=== PATIENT | male | born 1925 | race Caucasian/White ===

== ENCOUNTER 2016-09-11 15:55 | Emergency (ER) | payer BC ==
[~2016-09-11] VITALS: Ht 175.3 cm; Wt 77.5 kg
[~2016-09-11 15:55] MED LIST: ALT/10 PO; ASPI81TA21 PO; CALCTAB7 PO; DONE10TA12 PO; FISHOIL PO; GLUC250C5 PO; IBUP-1277 PO; LUTEIN 20MG; MAGNESIUM 500MG; MELATONIN 3MG; MEMA10TA PO; METO100T44 PO; MULTTAB58 PO; PROSTATA
[2016-09-11 16:00] VITALS: TEMP 36.8; Ht 175.3 cm; Wt 77.5 kg
--- NOTE | 2016-09-11 16:34 | EMERGENCY ROOM VISIT NOTE ---
History First contact with patient: 15:57 Chief Complaint: FALL Stated Complaint: FALL/ FACIAL LAC & ABRASIONS History of Present Illness The patient is a 89 year old male who presents to the Emergency Room with complaints of fall with abrasions to his nose, chin, and hands. The fall occurred approximately 30 minutes ago while on his daily walk. The patient has a history of Alzheimers Dementia, Hypertension, and a Pacemaker. He does not recall the events that occurred prior to the fall. He states that he did not lose consciousness after the fall. He states that he does remember falling but does not recall what caused him to fall. He also states he remember getting up from his fall. He denies any recent weakness, fatigue, shortness of breath, headache, vision changes, or chest pain, arm pain, hip pain, leg pain. Review of Systems See HPI for pertinent positives and negatives. A total of ten systems were reviewed and were otherwise negative. Past Medical/Surgical History Alzheimers Dementia, Hypertension, Pacemaker placement Social History Smoking Status: Former Smoker Alcohol Use: none Drug Use: none Marital Status: Housing Status: lives with family (son) Current/Historical Medications Scheduled Aspirin Enteric Coated (Ecotrin Or Generic), 81 MG PO DAILY Calcium Carbonate-Vitamin D W/ (Caltrate 600 Plus), 1 TAB PO DAILY Donepezil Hydrochloride (Aricept), 10 MG PO DAILY Fish Oil ([place]-3), 1 CAP PO BID Glucosamine-Chondroitin (Glucosamine/Chondroitin 250/200MG), 1 CAP PO BID Ibuprofen (Advil), 200 MG PO DAILY Memantine Hcl (Namenda), 10 MG PO BID Metoprolol Succ (Toprol Xl) (Toprol-Xl ), 100 MG PO DAILY Multiple Vitamin (Multivitamin), 1 TAB PO DAILY Ramipril (Altace), 10 MG PO BID [Lutein 20MG], 1 TAB DAILY [Magnesium 500MG], 1 DAILY [Melatonin 3MG], 1 HS [Prostata], 1 TAB BID Allergies Coded Allergies: Iodinated Contrast Media (Verified Allergy, Unknown, ., 09/11/16) Levofloxacin (Verified Allergy, Unknown, Unk, 09/11/16) Sulfa Drugs (Verified Allergy, Unknown, 09/11/16) Sulfamethoxazole (Verified Allergy, Unknown, 09/11/16) Physical Exam Vital Signs Date Time Temp Pulse Resp B/P Pulse Ox O2 Delivery O2 Flow Rate FiO2 5/8/17 16:16 63 09/11/16 16:00 36.8 85 18 183/105 97 Room Air Pain Rating (0-10): 0 Physical Exam GENERAL: Awake, alert, well-appearing, in no distress HENT: Normocephalic, Multiple Small Abrasions over the septal and left nostril aspect over the nose. Single abrasion over the chin as well, 0.5 cm in size. Ecchymosis below left eye. EYES: Normal conjunctiva. Sclera non-icteric. PERRL, EOMI. NECK: Neck brace present, denies any tenderness with flexion, extension, lateral rotation. No tenderness with palpation of cervical spine. RESPIRATORY: Clear to auscultation. CARDIAC: Regular rate, normal rhythm. Extremities warm and well perfused. Pulses equal. ABDOMEN: Soft, non-distended. No tenderness to palpation. No rebound or guarding. No masses. RECTAL: Deferred. MUSCULOSKELETAL: Chest, Hip, Arm, and Leg examination reveals no tenderness. The back is symmetrical on inspection without obvious abnormality. No joint edema. NEURO: Patient is oriented to person and place as well as time of day. He often does not responds appropriately to questions and repeats questions multiple times but his son at bedside states that this is his baseline mental status. Strength 5/5 in UE and LE. SKIN: No rash or jaundice noted. Abrasions over the inferior palms bilaterally, as well as both knees. Medical Decision & Procedures Medical Decision Mechanical Fall - Head CT - Cervical CT - Maxillary CT Impression Primary Impression: Fall Departure Information Referrals Domenico Corrales M.D. (PCP) Patient Instructions My [facility] Problem Qualifiers Primary Impression: Fall Encounter type: initial encounter Qualified Codes: W19.XXXA - Unspecified fall, initial encounter
[2016-09-11] MEDS ORDERED: FLM4 PO (17:06)
[2016-09-11] MEDS ORDERED: AMLO2.5T PO (17:06)
--- NOTE | 2016-09-11 17:07 | DIAGNOSTIC IMAGING REPORT ---
HEAD CT NONCONTRAST CT DOSE: 1127.09 mGy.cm HISTORY: Trauma Head Trauma TECHNIQUE: Multiaxial CT images of the head were performed without the use of intravenous contrast. Comparison: None. Findings: The paranasal sinuses and mastoid air cells are clear. The calvarium and skull base are intact. The ventricles and sulci are within normal limits. There is no mass, hematoma, midline shift, or acute infarct. Impression: No acute intracranial abnormality. Age-related atrophy and chronic small vessel change Electronically signed by: Robert Childs M.D. 09/11/2016 5:05 PM Dictated Date/Time: 09/11/2016 5:05 PM
--- NOTE | 2016-09-11 17:11 | DIAGNOSTIC IMAGING REPORT ---
CERVICAL SPINE CT CT DOSE: HISTORY: Trauma Head Trauma TECHNIQUE: Multiaxial CT images of the cervical spine were performed and reformatted in the sagittal and coronal plane without the use of contrast. COMPARISON: None. FINDINGS: No fractures. No subluxation. Prevertebral soft tissues and the C1-C2 interval are intact. No pneumothorax. Degenerative change throughout the entire cervical region. IMPRESSION: Degenerative change. No acute bony abnormality. Electronically signed by: Robert Childs M.D. 09/11/2016 5:09 PM Dictated Date/Time: 09/11/2016 5:07 PM
--- NOTE | 2016-09-11 17:13 | DIAGNOSTIC IMAGING REPORT ---
MAXILLOFACIAL CT CT DOSE: HISTORY: Trauma head trauma TECHNIQUE: Multiaxial CT images of the maxillofacial region were performed and reformatted in the coronal plane without the use of contrast. COMPARISON: None. FINDINGS: The visualized cervical spine, skull base, pterygoid plates, nasal bones, lamina papyracea, orbital floors, mandible, and zygomatic arches are intact. No fractures. The orbits are unremarkable. IMPRESSION: No fractures within the maxillofacial region. Electronically signed by: Robert Childs M.D. 09/11/2016 5:12 PM Dictated Date/Time: 09/11/2016 5:10 PM
[2016-09-11 18:34] VITALS: BP 176/98; PULSE 72; O2SAT 97
--- NOTE | 2016-09-11 21:57 | EMERGENCY ROOM VISIT NOTE ---
History Report prepared by Jaron: Renu Madison Under the Supervision of: Dr. Caleb Wild D.O. First contact with patient: 15:56 Chief Complaint: FALL Stated Complaint: FALL/ FACIAL LAC & ABRASIONS History of Present Illness The patient is an 89 year old male who presents to the Emergency Room with complaints of a fall [employer]. He was walking around the neighborhood when he tripped and fell forward. He remembers falling. He denies losing consciousness prior to or after the fall. He reports cuts to his face and hands. He denies any shoulder pain, chest pain, SOB, abdominal pain, hip pain, leg pain, headache , neck pain, or vision changes. He was able to get up and walk around afterwards. He has a pacemaker in place. Patient is at his baseline per son. The fall was witnessed by a neighbor who did call EMS. There is no reported loss of consciousness by the neighbor either per report. Source of History: patient Onset: [employer] Position: other (global) Quality: other (fall) Timing: other (episodic) Associated Symptoms: No SOB, No abdominal pain, No chest pain, No headache, No neck pain Note: Pt reports cuts to face and hands. Pt denies shoulder pain, hip pain, leg pain, vision changes. Review of Systems See HPI for pertinent positives & negatives. A total of 10 systems reviewed and were otherwise negative. Past Medical & Surgical Surgical Problems: (1) S/P placement of cardiac pacemaker Family History Non contributory secondary to age. Social History Smoking Status: Former Smoker Marital Status: Current/Historical Medications Scheduled Amlodipine (Norvasc), 2.5 MG PO DAILY Aspirin Enteric Coated (Ecotrin Or Generic), 81 MG PO DAILY Calcium Carbonate-Vitamin D W/ (Caltrate 600 Plus), 1 TAB PO DAILY Donepezil Hydrochloride (Aricept), 10 MG PO DAILY Fish Oil ([place]-3), 1 CAP PO BID Glucosamine-Chondroitin (Glucosamine/Chondroitin 250/200MG), 1 CAP PO QAM Memantine Hcl (Namenda), 10 MG PO BID Metoprolol Succ (Toprol Xl) (Toprol-Xl ), 100 MG PO DAILY Multiple Vitamin (Multivitamin), 1 TAB PO DAILY Ramipril (Altace), 10 MG PO QPM Tamsulosin HCl (Tamsulosin HCl), 0.4 MG PO DAILY Allergies Coded Allergies: Iodinated Contrast Media (Verified Allergy, Unknown, ., 09/11/16) Levofloxacin (Verified Allergy, Unknown, Unk, 09/11/16) Sulfa Drugs (Verified Allergy, Unknown, 09/11/16) Sulfamethoxazole (Verified Allergy, Unknown, 09/11/16) Physical Exam Vital Signs Date Time Temp Pulse Resp B/P Pulse Ox O2 Delivery O2 Flow Rate FiO2 09/11/16 18:34 72 18 176/98 97 Room Air 09/11/16 17:04 65 18 182/97 97 Room Air 09/11/16 16:16 63 09/11/16 16:00 36.8 85 18 183/105 97 Room Air Physical Exam GENERAL: alert, well appearing, well nourished, no distress, non-toxic HEAD: Small abrasion to the chin, top of nose, and left side of nose. Bruising around the left inferior orbit. EYE EXAM: normal conjunctiva, PERRL and EOM's grossly intact OROPHARYNX: no exudate, no erythema, lips, buccal mucosa, and tongue normal and mucous membranes are moist EARS: TMs clear b/l NECK: supple, no nuchal rigidity, no adenopathy, non-tender CHEST: stable to compression anteriorly and posteriorly. Pacemaker located in the left upper chest wall. LUNGS: clear to auscultation. Normal chest wall mechanics HEART: no murmurs, S1 normal and S2 normal ABDOMEN: abdomen soft, non-tender, normo-active bowel sounds, no masses, no rebound or guarding. PELVIS: stable to compression anteriorly and posteriorly BACK: Back is symmetrical on inspection and there is no deformity, no midline tenderness, no CVA tenderness. UPPER EXTREMITIES: full active and passive range of motion of all joints without tenderness to palpation LOWER EXTREMITIES: full active and passive range of motion of all joints without tenderness to palpation. Small abrasion to bilateral knees. NEURO EXAM: Alert and oriented to name and place, cranial nerves II-XII grossly intact, normal speech, no gross weakness of arms, no gross weakness of legs. GCS : 15. Medical Decision & Procedures ER Provider Diagnostic Interpretation: Radiology results as stated below per my review and the radiologist's interpretation: CERVICAL SPINE CT CT DOSE: HISTORY: Trauma Head Trauma TECHNIQUE: Multiaxial CT images of the cervical spine were performed and reformatted in the sagittal and coronal plane without the use of contrast. COMPARISON: None. FINDINGS: No fractures. No subluxation. Prevertebral soft tissues and the C1-C2 interval are intact. No pneumothorax. Degenerative change throughout the entire cervical region. IMPRESSION: Degenerative change. No acute bony abnormality. Electronically signed by: Robret Childs M.D. 09/11/2016 5:09 PM Dictated Date/Time: 09/11/2016 5:[address] CT DOSE: 1127.09 mGy.cm HISTORY: Trauma Head Trauma TECHNIQUE: Multiaxial CT images of the head were performed without the use of intravenous contrast. Comparison: None. Findings: The paranasal sinuses and mastoid air cells are clear. The calvarium and skull base are intact. The ventricles and sulci are within normal limits. There is no mass, hematoma, midline shift, or acute infarct. Impression: No acute intracranial abnormality. Age-related atrophy and chronic small vessel change Electronically signed by: Robert Childs M.D. 09/11/2016 5:05 PM Dictated Date/Time: 09/11/2016 5:[address] DOSE: HISTORY: Trauma head trauma TECHNIQUE: Multiaxial CT images of the maxillofacial region were performed and reformatted in the coronal plane without the use of contrast. COMPARISON: None. FINDINGS: The visualized cervical spine, skull base, pterygoid plates, nasal bones, lamina papyracea, orbital floors, mandible, and zygomatic arches are intact. No fractures. The orbits are unremarkable. IMPRESSION: No fractures within the maxillofacial region. Electronically signed by: Robert Childs M.D. 09/11/2016 5:12 PM Dictated Date/Time: 09/11/2016 5:10 PM ECG Indication: other (fall) Rate (beats per minute): 63 Rhythm: other (atrial paced) Findings: T-wave inversion (lead 3), left axis deviation Comparison ECG Date: 02-Apr-2012 Change: no significant change ED Course ED COURSE: Vital signs were reviewed and showed hypertension. The patients medical record was reviewed The above diagnostic studies were performed and reviewed. ED treatments and interventions as stated above. 1623: The patient was evaluated in room A10. A complete history and physical examination was performed. 1835: The pacemaker has been interrogated by [email or web address]. No VT, A fib, or V fib was identified. 1845: Upon reevaluation, the patient is resting comfortably.I discussed my findings with the patient and he understands and agrees with the treatment plan. Based on the patients age, coexisting illnesses, exam and lab findings the decision to treat as an outpatient was made. The patient remained stable while under my care. The patient appeared well at the time of discharge. Medical Decision Differential diagnoses include major intracranial, cervical, spinal, thoracic, abdominal, pelvic and neurologic injury. Fracture, contusion, sprain, strain, laceration, abrasions included as well. Patient is an 89-year-old male following a witnessed fall without also consciousness. He has no complaints at this time. Patient was evaluated by my resident and independently by myself. CT head, face and cervical spine were performed and were negative. Patient is mentally at his baseline. EKG was unremarkable. Pacemaker was interrogated and report given to me by Aj from [place]. There is no abnormality seen. Following these findings patient was discharged in the care of some follow-up with her primary care doctor. I do favor this is mechanical fall as it was reported and consequently no blood work was obtained at this time. Discussed with Pt concerning signs and symptoms to watch out for. Pt was instructed to follow up with their PCP and discussed with the patient their option to return to the ED at anytime for persistent or worsening symptoms. The appropriate anticipatory guidance and out-patient management, including indications for return to the emergency department, were explained at length to the patient and understood. Impression Primary Impression: Contusion of face Additional Impressions: Fall Abrasion of face Scribe Attestation The scribe's documentation has been prepared under my direction and personally reviewed by me in its entirety. I confirm that the note above accurately reflects all work, treatment, procedures, and medical decision making performed by me. Departure Information Dispostion Home / Self-Care Referrals Domenico Corrales M.D. (PCP) Forms HOME CARE DOCUMENTATION FORM, IMPORTANT VISIT INFORMATION Patient Instructions ED Contusion Face, ED Fall Uncertain Cause, My [facility] Additional Instructions Please follow up with your primary care doctor with in the next 24 hours. Any worsening of your symptoms, please return to the ED immediately. This includes recurrent falls, worsening pain, confusion, vomiting or any other concerning signs or symptoms from your standpoint. Problem Qualifiers Primary Impression: Contusion of face Encounter type: initial encounter Qualified Codes: S00.83XA - Contusion of other part of head, initial encounter Additional Impressions: Fall Encounter type: initial encounter Qualified Codes: W19.XXXA - Unspecified fall, initial encounter Abrasion of face Encounter type: initial encounter Qualified Codes: S00.81XA - Abrasion of other part of head, initial encounter
== END 2016-09-11 18:48 | disposition home or self-care (01) ==
LOC: EDBD 15:55 → C.EDA 15:56
DX: S00.12XA Contusion of left eyelid and periocular area, initial encounter (principal); S00.81XA Abrasion of other part of head, initial encounter; W01.0XXA Fall on same level from slipping, tripping and stumbling without subsequent striking against object, initial encounter; Y93.01 Activity, walking, marching and hiking; S00.31XA Abrasion of nose, initial encounter; S60.511A Abrasion of right hand, initial encounter; S60.512A Abrasion of left hand, initial encounter; S80.211A Abrasion, right knee, initial encounter; S80.212A Abrasion, left knee, initial encounter; G30.9 Alzheimer's disease, unspecified; F02.80 Dementia in other diseases classified elsewhere, unspecified severity, without behavioral disturbance, psychotic disturbance, mood disturbance, and anxiety; I10 Essential (primary) hypertension; Z95.0 Presence of cardiac pacemaker; Z79.82 Long term (current) use of aspirin; Z87.891 Personal history of nicotine dependence

== ENCOUNTER → 2016-10-04 | Outpatient (CLI) | payer BC ==
[~2016-10-04] MED LIST changes: +AMLO2.5T PO; +CEPH500C2 PO; +CETI10TA84 PO; +FLM4 PO; -IBUP-1277 PO; -LUTEIN 20MG; -MAGNESIUM 500MG; -MELATONIN 3MG; -PROSTATA
== END | disposition home or self-care (01) ==
LOC: C.LABSPEC 16:59
PROVIDERS: ATTEND Podiatrist Foot & Ankle Surgery
DX: L60.0 Ingrowing nail (principal)

== ENCOUNTER → 2017-02-28 | Outpatient (CLI) | payer BC ==
[~2017-02-28] MED LIST changes: -METO100T44 PO; +METO1TAB69 PO
[2017-02-28 16:48] LABS: BASO % 0.4 %; BASO ABS # 0.03 K/uL (0-0.2); COMPLETE YES; EOS % 2.8 %; HEMATOCRIT 44.8 % (42-52); IG% 0.3 %; LYMPH % 25.8 %; LYMPH ABS # 1.75 K/uL (1.2-3.4); MEAN CELL VOLUME 101.1 fL (80-100); MEAN CORPUSCULAR HEMOGLOBIN 35.9 pg (25-34); MEAN CORPUSCULAR HGB CONC 35.5 g/dl (32-36); MEAN PLATELET VOLUME 9.6 fL (7.4-10.4); MONO % 10.8 %; NEUT % 59.9 %; PLATELET COUNT 172 K/uL (130-400); RED BLOOD COUNT 4.43 M/uL (4.7-6.1); WHITE BLOOD COUNT 6.79 K/uL (4.8-10.8)
[2017-02-28 17:05] LABS: BLOOD UREA NITROGEN 21 mg/dl (7-18); BUN/CREATININE RATIO 16.9 (10-20); CALCIUM 9.7 mg/dl (8.5-10.1); CARBON DIOXIDE 30 mmol/L (21-32); CHLORIDE 104 mmol/L (98-107); CREATININE 1.21 mg/dl (0.60-1.40); GLUCOSE 86 mg/dl (70-99); POTASSIUM 4.1 mmol/L (3.5-5.1); SODIUM 140 mmol/L (136-145)
== END | disposition home or self-care (01) ==
LOC: C.LABBC 13:44
PROVIDERS: ATTEND Internal Medicine Geriatric Medicine
DX: I10 Essential (primary) hypertension (principal); I49.5 Sick sinus syndrome; F03.90 Unspecified dementia, unspecified severity, without behavioral disturbance, psychotic disturbance, mood disturbance, and anxiety; E55.9 Vitamin D deficiency, unspecified

== ENCOUNTER 2017-03-03 10:19 | Emergency (ER) | payer BC ==
[~2017-03-03] VITALS: Ht 172.7 cm; Wt 77.2 kg
[~2017-03-03 10:19] MED LIST changes: -CEPH500C2 PO; -CETI10TA84 PO; +METO100T44 PO; -METO1TAB69 PO
[2017-03-03 10:28] VITALS: TEMP 36.4
--- NOTE | 2017-03-03 10:48 | EMERGENCY ROOM VISIT NOTE ---
History Report prepared by Jaron: Adolfo Mullen Under the Supervision of: Dr. Harjinder Galvan D.O. First contact with patient: 10:38 Chief Complaint: DIZZY Stated Complaint: DISORIENTED, DIZZY, FALLING History of Present Illness The patient is a 89 year old male who presents to the Emergency Room with complaints of dizziness that began this morning and lasted for 30 minutes. This history is provided by the patient's son. The patient has a history of Alzheimer 's disease. Per the patient's nurses, he woke up this morning and was disoriented for about 30 minutes. During this time, he was dizzy and experienced 2 falls. He does not remember this episode. Afterward, he began to be back to his baseline. He was last known well last night at 2200. He has a skin tear to his left arm. He denies any fevers, chills, headache, nausea, vomiting, dizziness, or pain. Per the patient's son, he is back to his baseline. Source of History: patient, family Onset: This morning Position: other (Global) Symptom Intensity: minimal Quality: other (Dizziness) Timing: resolved Note: Patient denies any complaints at this time. Review of Systems See HPI for pertinent positives & negatives. A total of 10 systems reviewed and were otherwise negative. Past Medical & Surgical Surgical Problems: (1) S/P placement of cardiac pacemaker Family History Omitted secondary to the patient's age. Social History Smoking Status: Former Smoker Alcohol Use: none Drug Use: none Marital Status: Housing Status: lives with family Current/Historical Medications Scheduled Amlodipine (Norvasc), 2.5 MG PO DAILY Aspirin Enteric Coated (Ecotrin Or Generic), 81 MG PO DAILY Calcium Carbonate-Vitamin D W/ (Caltrate 600 Plus), 1 TAB PO DAILY Cephalexin Monohydrate (Keflex), 500 MG PO QID Cetirizine (Zyrtec), 10 MG PO DAILY Donepezil Hydrochloride (Aricept), 10 MG PO DAILY Fish Oil (Pine Level-3), 1 CAP PO BID Glucosamine-Chondroitin (Glucosamine/Chondroitin 250/200MG), 1 CAP PO QAM Memantine Hcl (Namenda), 10 MG PO BID Metoprolol Succ (Toprol Xl) (Toprol-Xl ), 100 MG PO DAILY Multiple Vitamin (Multivitamin), 1 TAB PO DAILY Ramipril (Altace), 10 MG PO QPM Tamsulosin HCl (Tamsulosin HCl), 0.4 MG PO DAILY Allergies Coded Allergies: Iodinated Contrast Media (Verified Allergy, Unknown, ., 03/03/17) Levofloxacin (Verified Allergy, Unknown, Unk, 03/03/17) Sulfa Drugs (Verified Allergy, Unknown, 09/11/16) Sulfamethoxazole (Verified Allergy, Unknown, 03/03/17) Physical Exam Vital Signs Date Time Temp Pulse Resp B/P (MAP) Pulse Ox O2 Delivery O2 Flow Rate FiO2 03/03/17 12:30 88 16 162/84 98 Room Air 03/03/17 11:40 99 Room Air 03/03/17 11:40 69 18 174/109 96 Room Air 77 150/90 73 173/96 03/03/17 11:40 99 Room Air 03/03/17 10:43 75 03/03/17 10:28 36.4 63 20 160/94 99 Room Air Physical Exam GENERAL: Patient is awake, alert, and in no acute distress. Patient is resting comfortably and showing no signs of anxiety EYES: The conjunctivae are clear. The pupils are constricted bilaterally and minimally reactive to light. EARS, NOSE, MOUTH AND THROAT: The nose is without any evidence of any deformity. Mucous membranes are moist tongue is midline NECK: The neck is nontender and supple. RESPIRATORY: Normal respiratory effort is noted there is no evidence of wheezing rhonchi or rales CARDIOVASCULAR: Regular rate and rhythm noted there no murmurs rubs or gallops normal S1 normal S2 GASTROINTESTINAL: The abdomen is soft. Bowel sounds are present in all quadrants. Abdomen is nontender BACK: No midline tenderness or or step-off noted range of motion in flexion extension as well as rotation no signs of muscle spasm noted MUSCULOSKELETAL/EXTREMITIES: There is no evidence of gross deformity full range of motion is noted in the hips and shoulders SKIN: There is no obvious evidence of any rash. There are no petechiae, pallor or cyanosis noted. NEUROLOGIC: At baseline according to son. Strength was symmetric in both lower extremities. Patient was able to hold each leg off of the bed for greater than 5 seconds each. Medical Decision & Procedures ER Provider Diagnostic Interpretation: Radiology results as stated below per my review and radiologist interpretation: HEAD WITHOUT CONTRAST (CT) CT DOSE: HISTORY: Trauma EVALUATE ALTERED MENTAL STATUS/WEAKNESS TECHNIQUE: Multiaxial CT images of the head were performed without the use of intravenous contrast. A dose lowering technique was utilized adhering to the principles of ALARA. Comparison: 09/11/2016 Findings: The paranasal sinuses and mastoid air cells are clear. Atrophy and mild chronic hydrocephalus. Moderate chronic small vessel change throughout. No acute intracranial hemorrhage. No midline shift. Impression: Chronic and age-related change. Mild chronic hydrocephalus. No acute process. The above report was generated using voice recognition software. It may contain grammatical, syntax or spelling errors. Electronically signed by: Robert Childs M.D. 03/03/2017 11:39 AM Dictated Date/Time: 03/03/2017 11:37 AM CHEST ONE VIEW PORTABLE CLINICAL HISTORY: EVALUATE ALTERED MENTAL STATUS/WEAKNESS dyspnea COMPARISON STUDY: 03/26/2012 FINDINGS: Moderate chronic megaly. Bipolar cardiac pacemaker. Lungs are considered clear. Chronic atelectatic change left base. IMPRESSION: Moderate cardiomegaly. Bipolar cardiac pacemaker in good position. Lungs are clear. The above report was generated using voice recognition software. It may contain grammatical, syntax or spelling errors. Electronically signed by: Robert Childs M.D. 03/03/2017 11:28 AM Dictated Date/Time: 03/03/2017 11:28 AM CERVICAL SPINE W/O CT DOSE: 1207.04 mGy.cm HISTORY: Trauma fall TECHNIQUE: Multiaxial CT images of the cervical spine were performed and reformatted in the sagittal and coronal plane without the use of contrast. A dose lowering technique was utilized adhering to the principles of ALARA. COMPARISON: 09/11/2016 FINDINGS: Considerable degenerative change throughout the entire cervical region. Rather severe degenerative intervertebral disc changes C3-C4 and C5-C6/C6-C7. This is similar as compared to the prior study. Slight wedge deformity superior endplate T2 is unaltered and is considered chronic. There are degenerative changes of posterior elements. There are degenerative changes of the C1-C2 complex. There is no acute bony abnormality present. IMPRESSION: Considerable degenerative change. No acute process. No change from the prior exam. The above report was generated using voice recognition software. It may contain grammatical, syntax or spelling errors. Electronically signed by: Robert Childs M.D. 03/03/2017 11:35 AM Dictated Date/Time: 03/03/2017 11:34 AM Laboratory Results 03/03/17 11:05 Red Blood Count 4.43, Mean Corpuscular Volume 100.9, Mean Corpuscular Hemoglobin 35.7, Mean Corpuscular Hemoglobin Concent 35.3, Mean Platelet Volume 9.4, Neutrophils (%) (Auto) 72.1, Lymphocytes (%) (Auto) 17.6, Monocytes (%) ( Auto) 8.0, Eosinophils (%) (Auto) 1.8, Basophils (%) (Auto) 0.4, Neutrophils # ( Auto) 5.33, Lymphocytes # (Auto) 1.30, Monocytes # (Auto) 0.59, Eosinophils # ( Auto) 0.13, Basophils # (Auto) 0.03 03/03/17 11:05 Test 03/03/17 11:05 03/03/17 11:42 White Blood Count 7.39 K/uL (4.8-10.8) Red Blood Count 4.43 M/uL (4.7-6.1) Hemoglobin 15.8 g/dL (14.0-18.0) Hematocrit 44.7 % (42-52) Mean Corpuscular Volume 100.9 fL (80-100) Mean Corpuscular Hemoglobin 35.7 pg (25-34) Mean Corpuscular Hemoglobin Concent 35.3 g/dl (32-36) Platelet Count 166 K/uL (130-400) Mean Platelet Volume 9.4 fL (7.4-10.4) Neutrophils (%) (Auto) 72.1 % Lymphocytes (%) (Auto) 17.6 % Monocytes (%) (Auto) 8.0 % Eosinophils (%) (Auto) 1.8 % Basophils (%) (Auto) 0.4 % Neutrophils # (Auto) 5.33 K/uL (1.4-6.5) Lymphocytes # (Auto) 1.30 K/uL (1.2-3.4) Monocytes # (Auto) 0.59 K/uL (0.11-0.59) Eosinophils # (Auto) 0.13 K/uL (0-0.5) Basophils # (Auto) 0.03 K/uL (0-0.2) RDW Standard Deviation 47.6 fL (36.4-46.3) RDW Coefficient of Variation 13.0 % (11.5-14.5) Immature Granulocyte % (Auto) 0.1 % Immature Granulocyte # (Auto) 0.01 K/uL (0.00-0.02) Prothrombin Time 10.7 SECONDS (9.0-12.0) Prothromb Time International Ratio 1.0 (0.9-1.1) Activated Partial Thromboplast Time 26.5 SECONDS (21.0-31.0) Partial Thromboplastin Ratio 1.0 Anion Gap 8.0 mmol/L (3-11) Est Creatinine Clear Calc Drug Dose 42.1 ml/min Estimated GFR () 65.0 Estimated GFR (Non- 56.1 BUN/Creatinine Ratio 19.0 (10-20) Calcium Level 9.2 mg/dl (8.5-10.1) Magnesium Level 2.4 mg/dl (1.8-2.4) Total Bilirubin 0.5 mg/dl (0.2-1) Direct Bilirubin 0.2 mg/dl (0-0.2) Aspartate Amino Transf (AST/SGOT) 20 U/L (15-37) Alanine Aminotransferase (ALT/SGPT) 29 U/L (12-78) Alkaline Phosphatase 61 U/L (45-117) Troponin I < 0.015 ng/ml (0-0.045) Total Protein 7.2 gm/dl (6.4-8.2) Albumin 3.7 gm/dl (3.4-5.0) Thyroid Stimulating Hormone (TSH) 2.610 uIu/ml (0.300-4.500) Urine Color DK YELLOW Urine Appearance TURBID (CLEAR) Urine pH 8.5 (4.5-7.5) Urine Specific [place] 1.017 (1.000-1.030) Urine Protein NEG (NEG) Urine Glucose (UA) NEG (NEG) Urine Ketones NEG (NEG) Urine Occult Blood 2+ (NEG) Urine Nitrite NEG (NEG) Urine Bilirubin NEG (NEG) Urine Urobilinogen NEG (NEG) Urine Leukocyte Esterase SMALL (NEG) Urine WBC (Auto) 10-30 /hpf (0-5) Urine RBC (Auto) >30 /hpf (0-4) Urine Hyaline Casts (Auto) 1-5 /lpf (0-5) Urine Epithelial Cells (Auto) >30 /lpf (0-5) Urine Bacteria (Auto) 1+ (NEG) Laboratory results per my review. Medications Administered Medications (Trade) Dose Ordered Sig/Dania Route Start Time Stop Time Status Last Admin Dose Admin Cephalexin Monohydrate (Keflex Cap) 500 mg NOW ONCE PO 03/03/17 12:30 03/03/17 12:31 DC 03/03/17 12:30 500 MG ECG Indication: altered mental status Rate (beats per minute): 85 Rhythm: other (Atrial paced) Findings: other (No PVCs, no acute ST-segment abnormalities) ED Course 1038: The patient was evaluated in room A4. A complete history and physical examination were performed. 1230: Ordered Keflex Cap 500 mg PO 1250: Upon reevaluation, the patient is resting. I discussed the results and treatment plan with him and his son. They verbalized agreement of the treatment plan. He was discharged home. Medical Decision Differential diagnosis: Etiologies such as metabolic, infection, hypoglycemia, electrolyte abnormalities , cardiac sources, intracerebral event, toxicologic, neurologic, as well as others were entertained. Nursing notes were reviewed. Additional history is obtained from the patient's son. The patient is an 89-year-old male who presented to the emergency department for an evaluation of altered mental status. The patient was found on the floor by his son. He had some trauma to his elbow. No definite head injury was noted but the patient's son states that he was very confused after the fall. The patient did not have any focal neurologic deficit but he was confused. At this time the patient appears to be at his baseline according to his son. I discussed the patient's laboratory and radiographic studies with him as well as his son. He does appear to have signs of urinary tract infection on urinalysis. This could explain the patient's condition at this point however he was encouraged to follow-up primary care physician as soon as possible. Otherwise she was encouraged to drink plenty clear liquids and continue all medications as prescribed. He was also encouraged to have his blood pressure rechecked with his family doctor. He was also encouraged return to the emergency department immediately if symptoms change worsen or the need arises. Medication Reconcilliation Current Medication List: was personally reviewed by me Blood Pressure Screening Patient's blood pressure: Elevated blood pressure Blood pressure disposition: Referred to PCP Impression Primary Impression: Fall Additional Impressions: Altered mental status UTI (urinary tract infection) Hypertension Scribe Attestation The scribe's documentation has been prepared under my direction and personally reviewed by me in its entirety. I confirm that the note above accurately reflects all work, treatment, procedures, and medical decision making performed by me. Departure Information Dispostion Home / Self-Care Prescriptions Cephalexin Monohydrate (KEFLEX) 500 Mg Cap 500 MG PO QID, #28 CAP Prov: Harjinder Galvan, DO 03/03/17 Referrals Domenico Corrales M.D. (PCP) Forms HOME CARE DOCUMENTATION FORM, IMPORTANT VISIT INFORMATION Patient Instructions ED UTI Cystitis Male, Falls Prevent Home, My [facility] Additional Instructions Continue all medications as prescribed. Follow-up with your family this week. Your blood pressure was elevated in the emergency department. I would recommend a recheck of your blood pressure and continue all blood pressure medications. Return to the emergency apartment immediately if symptoms change worsen or the need arises. Problem Qualifiers Primary Impression: Fall Encounter type: initial encounter Qualified Codes: W19.XXXA - Unspecified fall, initial encounter Additional Impressions: Altered mental status Altered mental status type: unspecified Qualified Codes: R41.82 - Altered mental status, unspecified UTI (urinary tract infection) Urinary tract infection type: site unspecified Hematuria presence: without hematuria Qualified Codes: N39.0 - Urinary tract infection, site not specified Hypertension Hypertension type: unspecified Qualified Codes: I10 - Essential (primary) hypertension
[2017-03-03 11:16] VITALS: Ht 172.7 cm; Wt 77.2 kg
[2017-03-03 11:27] LABS: BASO % 0.4 %; BASO ABS # 0.03 K/uL (0-0.2); COMPLETE YES; EOS % 1.8 %; HEMATOCRIT 44.7 % (42-52); IG% 0.1 %; LYMPH % 17.6 %; MEAN CELL VOLUME 100.9 fL (80-100); MEAN CORPUSCULAR HEMOGLOBIN 35.7 pg (25-34); MEAN CORPUSCULAR HGB CONC 35.3 g/dl (32-36); MEAN PLATELET VOLUME 9.4 fL (7.4-10.4); NEUT % 72.1 %; PLATELET COUNT 166 K/uL (130-400); RED BLOOD COUNT 4.43 M/uL (4.7-6.1); WHITE BLOOD COUNT 7.39 K/uL (4.8-10.8)
--- NOTE | 2017-03-03 11:30 | DIAGNOSTIC IMAGING REPORT ---
CHEST ONE VIEW PORTABLE CLINICAL HISTORY: EVALUATE ALTERED MENTAL STATUS/WEAKNESS dyspnea COMPARISON STUDY: 03/26/2012 FINDINGS: Moderate chronic megaly. Bipolar cardiac pacemaker. Lungs are considered clear. Chronic atelectatic change left base. IMPRESSION: Moderate cardiomegaly. Bipolar cardiac pacemaker in good position. Lungs are clear. The above report was generated using voice recognition software. It may contain grammatical, syntax or spelling errors. Electronically signed by: Robert Childs M.D. 03/03/2017 11:28 AM Dictated Date/Time: 03/03/2017 11:28 AM
[2017-03-03 11:35] LABS: ALT/SGPT 29 U/L (12-78); AST/SGOT 20 U/L (15-37); BLOOD UREA NITROGEN 22 mg/dl (7-18); CALCIUM 9.2 mg/dl (8.5-10.1); CARBON DIOXIDE 28 mmol/L (21-32); CHLORIDE 107 mmol/L (98-107); CREATININE 1.15 mg/dl (0.60-1.40); GLUCOSE 86 mg/dl (70-99); MAGNESIUM 2.4 mg/dl (1.8-2.4); POTASSIUM 4.5 mmol/L (3.5-5.1); SODIUM 143 mmol/L (136-145)
--- NOTE | 2017-03-03 11:37 | DIAGNOSTIC IMAGING REPORT ---
CERVICAL SPINE W/O CT DOSE: 1207.04 mGy.cm HISTORY: Trauma fall TECHNIQUE: Multiaxial CT images of the cervical spine were performed and reformatted in the sagittal and coronal plane without the use of contrast. A dose lowering technique was utilized adhering to the principles of ALARA. COMPARISON: 09/11/2016 FINDINGS: Considerable degenerative change throughout the entire cervical region. Rather severe degenerative intervertebral disc changes C3-C4 and C5-C6/C6-C7. This is similar as compared to the prior study. Slight wedge deformity superior endplate T2 is unaltered and is considered chronic. There are degenerative changes of posterior elements. There are degenerative changes of the C1-C2 complex. There is no acute bony abnormality present. IMPRESSION: Considerable degenerative change. No acute process. No change from the prior exam. The above report was generated using voice recognition software. It may contain grammatical, syntax or spelling errors. Electronically signed by: Robert Childs M.D. 03/03/2017 11:35 AM Dictated Date/Time: 03/03/2017 11:34 AM
[2017-03-03 11:40] VITALS: O2SAT 99
[2017-03-03 11:40] LABS: PROTHROMBIN TIME (PATIENT) 10.7 SECONDS (9.0-12.0)
--- NOTE | 2017-03-03 11:40 | DIAGNOSTIC IMAGING REPORT ---
HEAD WITHOUT CONTRAST (CT) CT DOSE: HISTORY: Trauma EVALUATE ALTERED MENTAL STATUS/WEAKNESS TECHNIQUE: Multiaxial CT images of the head were performed without the use of intravenous contrast. A dose lowering technique was utilized adhering to the principles of ALARA. Comparison: 09/11/2016 Findings: The paranasal sinuses and mastoid air cells are clear. Atrophy and mild chronic hydrocephalus. Moderate chronic small vessel change throughout. No acute intracranial hemorrhage. No midline shift. Impression: Chronic and age-related change. Mild chronic hydrocephalus. No acute process. The above report was generated using voice recognition software. It may contain grammatical, syntax or spelling errors. Electronically signed by: Robert Childs M.D. 03/03/2017 11:39 AM Dictated Date/Time: 03/03/2017 11:37 AM
[2017-03-03 11:46] LABS: ALKALINE PHOSPHATASE 61 U/L (45-117)
[2017-03-03] MEDS ORDERED: CETI10TA84 PO (11:49)
[2017-03-03 12:11] LABS: URINE APPEARANCE TURBID (CLEAR); URINE BILIRUBIN NEG (NEG); URINE COLOR DK YELLOW; URINE PH 8.5 (4.5-7.5); URINE SPECIFIC GRAVITY 1.017 (1.000-1.030)
[2017-03-03 12:12] LABS: URINE EPITHELIAL CELL AUTO >30 /lpf (0-5); URINE NITRITE NEG (NEG); UROBILINOGEN NEG (NEG)
[2017-03-03 12:15] LABS: MANUAL MICROSCOPIC REQUIRED? NO; REVIEW REQ? NO
[2017-03-03] MEDS ORDERED: CEPH500C2 PO (12:18)
[2017-03-03 12:30] VITALS: BP 162/84; PULSE 88; O2SAT 98
[2017-03-03] MEDS ORDERED: CEPHALEXIN MONOHYDRATE 250 MG CAP PO ONE (12:30)
== END 2017-03-03 12:42 | disposition home or self-care (01) ==
LOC: C.EDB 10:22 → C.EDA 12:42
DX: R41.82 Altered mental status, unspecified (principal); N39.0 Urinary tract infection, site not specified; I10 Essential (primary) hypertension; S41.112A Laceration without foreign body of left upper arm, initial encounter; W18.30XA Fall on same level, unspecified, initial encounter; G30.9 Alzheimer's disease, unspecified; F02.80 Dementia in other diseases classified elsewhere, unspecified severity, without behavioral disturbance, psychotic disturbance, mood disturbance, and anxiety; Z95.0 Presence of cardiac pacemaker; Z87.891 Personal history of nicotine dependence; Z79.82 Long term (current) use of aspirin

== ENCOUNTER 2017-06-06 15:50 | Emergency (ER) | payer BC ==
[~2017-06-06] VITALS: Ht 170.2 cm; Wt 80.2 kg
[~2017-06-06 15:50] MED LIST changes: +CEPH500C2 PO; +CETI10TA84 PO; -FLM4 PO
[2017-06-06 16:00] VITALS: TEMP 36.6; Ht 170.2 cm; Wt 80.2 kg
[2017-06-06] MEDS ORDERED: FLM4 PO (17:06)
[2017-06-06 17:31] VITALS: O2SAT 98
--- NOTE | 2017-06-06 17:48 | EMERGENCY ROOM VISIT NOTE ---
History Report prepared by Teresaibbharat: Josie Mistry Under the Supervision of: Dr. Deonte Thompson M.D. First contact with patient: 17:27 Chief Complaint: OTHER COMPLAINT Stated Complaint: DIFFICULTY SWALLOWING, PRODUCING A LOT OF SALIVA History of Present Illness The patient is an 89 year old white male with a past medical history of hypertension, BPH, dementia and pacemaker replacement who presents to the ED with a cc of difficulty swallowing beginning earlier today. He is accompanied by his son, who notes the patient has not complained of difficulty swallowing since they've been here in the ED. Positive excessive saliva. Negative pain with swallowing, recent changes in diet, recent chemical exposures, difficulty breathing, nausea, abdominal pain or diarrhea. Source of History: patient, family (son) Onset: earlier today Position: throat Timing: resolved Associated Symptoms: No sorethroat, No nausea, No abdominal pain, No diarrhea Review of Systems See HPI for pertinent positives and negatives. A total of ten systems were reviewed and were otherwise negative. Past Medical & Surgical Surgical Problems: (1) S/P placement of cardiac pacemaker Social History Smoking Status: Former Smoker Alcohol Use: none Drug Use: none Marital Status: Housing Status: lives with family Occupation Status: retired Current/Historical Medications Scheduled Amlodipine Besylate (Norvasc), 2.5 MG PO DAILY Ascorbic Acid (Vitamin C), 500 MG PO DAILY Calcium Carbonate-Vitamin D W/ (Caltrate 600 Plus), 1 TAB PO BID Coenzyme Q10 (Ubidecarenone) (Co Q-10), 200 MG PO DAILY Cyanocobalamin (Vitamin B12), 1,000 MCG PO DAILY Donepezil Hydrochloride (Aricept), 10 MG PO DAILY Glucosamine-Chondroitin (Glucosamine/Chondroitin), 1 TAB PO DAILY Lutein (Lutein), 1 TAB PO DAILY Magnesium Oxide (Mg Supplement (Magnesium), 1 CAP PO DAILY Memantine Hcl (Namenda), 10 MG PO BID Metoprolol Succinate (Metoprolol Succinate ER), 100 MG PO DAILY Multiple Vitamin (Multivitamin), 1 TAB PO DAILY [place]-3 Fatty Acids (Fish Oil), 1 CAP PO BID Ramipril (Altace), 10 MG PO QPM Tamsulosin HCl (Tamsulosin HCl), 0.4 MG PO DAILY Vitamin E (Vitamin E), 1,000 INTER.UNIT PO BID Scheduled PRN Ibuprofen Tab (Advil), 200 MG PO UD PRN for Pain or Fever Melatonin (Melatonin), 3 MG PO HS PRN for Sleep Allergies Coded Allergies: Iodinated Contrast Media (Verified Allergy, Unknown, ., 03/03/17) Levofloxacin (Verified Allergy, Unknown, Unk, 03/03/17) Sulfa Drugs (Verified Allergy, Unknown, 09/11/16) Sulfamethoxazole (Verified Allergy, Unknown, 03/03/17) Physical Exam Vital Signs Date Time Temp Pulse Resp B/P (MAP) Pulse Ox O2 Delivery O2 Flow Rate FiO2 06/06/17 19:17 93 18 180/109 94 06/06/17 17:40 64 06/06/17 17:32 68 18 179/121 98 Room Air 06/06/17 17:31 98 Room Air 06/06/17 16:00 36.6 72 17 162/97 95 Room Air Physical Exam GENERAL: Awake, alert, well-appearing, NAD HENT: Normocephalic, atraumatic. Posterior oropharynx is clear, no tonsillar or uvular deviation, no stridor, no palpable masses. EYES: Normal conjunctiva. Sclera non-icteric. NECK: Supple. No nuchal rigidity. FROM. RESPIRATORY: CTAB, no rhonchi, wheezing, crackles CARDIAC: RRR, no MRG ABDOMEN: Soft, NTND, BS+ MSK: No chest wall TTP, no LE edema NEURO: GCS 15, CN 2-12 intact, moves all 4s on command SKIN: No rash or jaundice noted. Medical Decision & Procedures ER Provider Diagnostic Interpretation: Radiology results as stated below per my review and radiologist interpretation: CHEST ONE VIEW PORTABLE HISTORY: dysphagia?, r/o masses COMPARISON: Chest 03/03/2017. FINDINGS: Left-sided dual-chamber pacemaker. The heart remains mildly enlarged. No pleural effusions. No pneumothorax. No focal lung consolidations to suggest pneumonia. No evidence for pulmonary edema. IMPRESSION: No significant change compared to the prior study. No acute process. Stable mild cardiomegaly. Electronically signed by: Alan Hall M.D. 06/06/2017 6:17 PM ED Course 1743: The patient was evaluated in room B8. A complete history and physical exam was performed. 1850: I reevaluated the patient. He passed his swallow study and is feeling well and ready to go home. I discussed his results and discharge instructions and he verbalized complete understanding and agreement. Medical Decision The patient is an 89 year old white male with a past medical history of hypertension, BPH, dementia and pacemaker replacement who presents to the ED with a cc of difficulty swallowing beginning earlier today. esophageal web, stricture, mass, stroke Patient was seen and evaluated the bedside. Patient does have a known history of dementia and he reportedly was holding saliva in his mouth earlier today. Patient denies any oral pharyngeal discomfort however he did have a recent sore throat. Patient denies any anti-aphasia. Patient states that he has been eating a regular diet. Patient denies any exposures and while he may have had some increased saliva he denies things like diarrhea or watery eyes feeling flushed. This does not sound like it is cholinergic. Patient denies any insulin weight loss. Patient did have a history of prostate CA however this has resolved. Patient has had a normal diet and has not had an increase in the soft diet issues. On exam the patient is well-appearing. Patient has no obvious masses noted. No stridor. Patient did have a chest x-ray which is negative acute. Patient was able to pass his dysphagia screening without any problem. Patient was deemed suitable for outpatient follow-up treatment at this time. Patient was given strict follow-up, discharge, and return precautions. All questions were answered. Patient was deemed suitable for outpatient follow-up at this time. Patient agreed with the plan of care and was safely discharged home. The chart was completed utilizing [employer] Speech voice recognition software. Grammatical errors, random word insertions, pronoun errors, and incomplete sentences are an occasional consequence of this system due to software limitations, ambient noise, and hardware issues. Any formal questions or concerns about the content, text, or information contained within the body of this dictation should be directly addressed to the physician for clarification. Medication Reconcilliation Current Medication List: was personally reviewed by me Blood Pressure Screening Patient's blood pressure: Elevated blood pressure Blood pressure disposition: Referred to PCP Impression Primary Impression: Dysphagia Scribe Attestation The scribe's documentation has been prepared under my direction and personally reviewed by me in its entirety. I confirm that the note above accurately reflects all work, treatment, procedures, and medical decision making performed by me. Departure Information Dispostion Home / Self-Care Referrals Domenico Corrales M.D. (PCP) Patient Instructions Dysphagia, My [facility] Additional Instructions Please return to the emergency department if you have worsening or recurrent symptoms not amenable to at-home treatment. Please call for a follow-up appointment with her primary care physician. Please take your medications as prescribed. If you have other concerns and/or complaints please feel free to also call your primary care physician's office or return the ED for further evaluation, management, and treatment. You were found to have an elevated blood pressure today (>120 sytolic or >90 diastolic). Per medicare guidelines, you need to follow up with this blood pressure screening with your Primary Care Physician (PCP). For a new PCP call [phone]. You received narcotic or benzodiazepene medication while in the emergency room today. This is an addictive medication that may cause drowziness as well as constipation. Do not drive, operate heavy machinery, or drink alcohol under the influence of this medication. Take your medications as prescribed. You have been examined and treated today on an emergency basis only. This is not a substitute for, or an effort to provide, complete comprehensive medical care. It is impossible to recognize and treat all injuries or illnesses in a single emergency department visit. It is therefore important that you follow up closely with [facility], your PCP, and/or your specialist(s). Call as soon as possible for an appointment. Thank you for your time and consideration. I look forward to speaking with you again soon. Please don't hesitate to call us if you have any questions. Problem Qualifiers Primary Impression: Dysphagia Dysphagia type: unspecified Qualified Codes: R13.10 - Dysphagia, unspecified
--- NOTE | 2017-06-06 18:18 | DIAGNOSTIC IMAGING REPORT ---
CHEST ONE VIEW PORTABLE HISTORY: dysphagia?, r/o masses COMPARISON: Chest 03/03/2017. FINDINGS: Left-sided dual-chamber pacemaker. The heart remains mildly enlarged. No pleural effusions. No pneumothorax. No focal lung consolidations to suggest pneumonia. No evidence for pulmonary edema. IMPRESSION: No significant change compared to the prior study. No acute process. Stable mild cardiomegaly. Electronically signed by: Alan Hall M.D. 06/06/2017 6:17 PM Dictated Date/Time: 06/06/2017 6:16 PM
[2017-06-06] MEDS ORDERED: TPRSR/100 PO (18:21)
[2017-06-06] MEDS ORDERED: AMLO2.5T PO (18:21)
[2017-06-06] MEDS ORDERED: OMEGCAP2 PO (18:24)
[2017-06-06] MEDS ORDERED: GLUC500T23 PO (18:24)
[2017-06-06] MEDS ORDERED: LUTE10TA PO (18:30)
[2017-06-06] MEDS ORDERED: COEN1CAP37 PO (18:30)
[2017-06-06] MEDS ORDERED: MELA3TAB PO (18:30)
[2017-06-06] MEDS ORDERED: ASCO500T3 PO (18:30)
[2017-06-06] MEDS ORDERED: CYAN100020 PO (18:30)
[2017-06-06] MEDS ORDERED: VITA10004 PO (18:30)
[2017-06-06] MEDS ORDERED: MAGN500C PO (18:32)
[2017-06-06] MEDS ORDERED: IBUP-103 PO (18:32)
[2017-06-06 19:17] VITALS: BP 180/109; PULSE 93; O2SAT 94
== END 2017-06-06 19:18 | disposition home or self-care (01) ==
LOC: C.EDB 15:52
DX: R13.10 Dysphagia, unspecified (principal); Z87.891 Personal history of nicotine dependence